=== PATIENT | female | born 1980 | race African-American/Black ===

== ENCOUNTER 2017-07-16 07:57 | Day surgery (SDC) | payer OTHER ==
[~2017-07-16] VITALS: Ht 165.1 cm; Wt 76.2 kg
[~2017-07-16 07:57] MED LIST: ALEVE220 MG PO; ANTI-ITCH56 GM TP; AUGMENTIN80 MG/ML PO; CLINDAMYCIN HC300 MG PO; DEPO-PROVER150 MG/ML IM; KENLAOG,ARISTOC60 ML TP; Motrin PO; OXYCODONE-APAP1 EACH PO; PERCOCET 10/1 TABLET PO; Percocet 5/325,Endoc PO; TRAMADOL HCL50 MG PO; ~No Medications
[2017-07-16 09:02] VITALS: BP 104/56
[2017-07-16 09:18] VITALS: BP 104/56
[2017-07-16] MEDS ORDERED: ENDOCET 5-3251 EACH PO (11:20)
[2017-07-16] MEDS ORDERED: IBUPROFEN800 MG PO (11:20)
[2017-07-16 12:55] VITALS: BP 118/64
[2017-07-16 14:00] VITALS: BP 110/61
== END 2017-07-16 14:26 | disposition home or self-care (01) ==
LOC: SDC → 2SOUTH 09:10 → SDC 12:27 → EDSTATUS 12:45 → SDC 12:45
DX: N92.0 Excessive and frequent menstruation with regular cycle (principal); N94.6 Dysmenorrhea, unspecified; N80.0 Endometriosis of uterus; N85.4 Malposition of uterus; L30.9 Dermatitis, unspecified
CPT/HCPCS: 88307; J0131; J0690; J1100; J1170; J1885; J2250; J2405; J2710; J3010